=== PATIENT | female | born 1960 | race Caucasian/White ===

== ENCOUNTER → 2016-10-29 | Outpatient (CLI) | payer OTHER ==
[~2016-10-29] MED LIST: AMLO5 PO; BENZ1CAP8 PO; BUSP15TA PO; CITA40TA4 PO; CLOP75TA PO; DICY10 PO; FOLI1TAB4 PO; FURO1TAB62 PO; GAS-125C3 PO; LURA80 PO; OXYB5TAB10 PO; PENL8SOL TOPICAL; PRED20 PO; PROP20TA3 PO; SENN8.6C PO; SPIR25 PO; ZANT150T2 PO
[2016-10-29 08:33] LABS: MEAN CORPUSCULAR HGB CONC 36.1 % (32.0-36.0)
[2016-10-29 08:52] LABS: AUTOMATED NEUTROPHIL # 3.6 TH/MM3 (1.8-7.7); BASOPHIL # 0.1 TH/MM3 (0-0.2); BASOPHIL % 1.1 % (0.0-2.0); EOSINOPHIL # 0.1 TH/MM3 (0-0.4); EOSINOPHIL % 2.4 % (0.0-4.0); HEMATOCRIT 43.2 % (35.0-46.0); LYMPH % 26.2 % (9.0-44.0); LYMPHOCYTE # 1.5 TH/MM3 (1.0-4.8); MEAN CELL VOLUME 89.1 FL (80.0-100.0); MEAN CORPUSCULAR HEMOGLOBIN 32.1 PG (27.0-34.0); MONO % 6.9 % (0.0-8.0); NEUT % 63.4 % (16.0-70.0); PLATELET COUNT 195 TH/MM3 (150-450); RED BLOOD COUNT 4.84 MIL/MM3 (4.00-5.30); RED CELL DISTRIBUTION WIDTH 12.9 % (11.6-17.2); WHITE BLOOD COUNT 5.7 TH/MM3 (4.0-11.0)
[2016-10-29 08:56] LABS: HEMO FLAGS AUTO DIFF
[2016-10-29 09:30] LABS: ALKALINE PHOSPHATASE 122 U/L (45-117); ALT (GPT) 47 U/L (10-53); ANION GAP 8 MEQ/L (5-15); AST (GOT) 33 U/L (15-37); BICARBONATE 26.6 MEQ/L (21.0-32.0); BLOOD UREA NITROGEN 15 MG/DL (7-18); CHLORIDE 106 MEQ/L (98-107); GLOMERULAR FILTRATION RATE 72 ML/MIN (>89); GLUCOSE,FASTING 88 MG/DL (74-99); HDL CHOLESTEROL 45.2 MG/DL (40.0-60.0); LDL CHOLESTEROL 75 MG/DL (0-99); POTASSIUM 3.6 MEQ/L (3.5-5.1); SODIUM (NA) 141 MEQ/L (136-145); TOTAL BILIRUBIN ADULT 0.5 MG/DL (0.2-1.0)
[2016-10-29 10:10] LABS: PLATELET ESTIMATE SMEAR NORMAL (NORMAL); PLATELET MORPHOLOGY NORMAL (NORMAL); SCAN/DIFF AUTO DIFF CONFIRMED
== END ==
LOC: CLAB 08:26
PROVIDERS: ATTEND Family Medicine
DX: M94.0 Chondrocostal junction syndrome [Tietze] (principal); K58.9 Irritable bowel syndrome, unspecified; B35.1 Tinea unguium; B19.20 Unspecified viral hepatitis C without hepatic coma; T14.8 Other injury of unspecified body region; X58.XXXA Exposure to other specified factors, initial encounter
CPT/HCPCS: 36415; 80053; 80061; 84443; 85025

== ENCOUNTER 2017-12-12 17:01 | Emergency (ER) | payer OTHER ==
[~2017-12-12] VITALS: Ht 160 cm; Wt 68.0 kg
[~2017-12-12 17:01] MED LIST changes: -AMLO5 PO; +AMLO5TAB2 PO; -BENZ1CAP8 PO; +CITA20TA4 PO; -CITA40TA4 PO; -DICY10 PO; +DICY10CA12 PO; -FOLI1TAB4 PO; +FOLI1TAB6 PO; -GAS-125C3 PO; +METR-1 PO; -OXYB5TAB10 PO; +OXYB5TAB8 PO; -PRED20 PO; +PROP10TA6 PO; -PROP20TA3 PO; -SENN8.6C PO; +SENN8.6T81 PO; +SIME1CAP17 PO
[2017-12-12 17:03] VITALS: BP 109/63; PULSE 72; RESP 16; TEMP 98.4; O2SAT 98
[2017-12-12] MEDS ORDERED: DEXAMETHASONE SOD PHOS 4 MG/ML VIAL IM ONE (18:00)
[2017-12-12] MEDS ORDERED: ORPHENADRINE INJ 60 MG/2 ML AMP IM ONE (18:00)
[2017-12-12] MEDS ORDERED: TYLETAB34 PO (18:11)
[2017-12-12] MEDS ORDERED: PRED20 PO (18:11)
--- NOTE | 2017-12-12 18:11 | PD ---
HPI Chief Complaint: Musculoskeletal Complaint Time Seen by Provider: 17:45 Travel History International Travel<30 days: No Contact w/Intl Traveler<30days: No Traveled to known affect area: No History of Present Illness HPI 57-year-old female complains of left leg pain. Patient states that the pain started a month ago. Patient stated that the pain is burning pain sharp pain started left buttock with radiation to left leg to left foot. Patient states the pain has been constant for the past month. Patient denies any injury. Patient states that she was seen at [facility] in [facility] and had x-ray done which was negative. Patient states that the pain has been persistent since then. Patient states the pain is worse with standing and sitting down. Patient has history rheumatoid arthritis and PE. Patient's is on Plavix. On a scale of 1-10 the pain is a 10. PFSH Past Medical History Hx Anticoagulant Therapy: Yes (PLAVIX) Arthritis: Yes (RA, osteo, fibromyalgia) Asthma: No Autoimmune Disease: No Blood Disorders: No Anxiety: No Depression: Yes Heart Rhythm Problems: No Cancer: Yes (lyomyosarcoma) Cardiovascular Problems: Yes (HTN) High Cholesterol: No Chemotherapy: No Chest Pain: No Congestive Heart Failure: No COPD: No Cerebrovascular Accident: No Diabetes: No Diminished Hearing: No Endocrine: No Gastrointestinal Disorders: No GERD: No Glaucoma: No Genitourinary: No Headaches: No Hepatitis: Yes (C) Hiatal Hernia: No Hypertension: Yes Immune Disorder: No Implanted Vascular Access Dvce: No Kidney Stones: No Musculoskeletal: No Neurologic: No Psychiatric: No Reproductive: No Respiratory: No Integumentary: Yes (SKIN CA) Immunizations Current: Yes Migraines: No Myocardial Infarction: No Radiation Therapy: No Renal Failure: No Seizures: No Sickle Cell Disease: No Sleep Apnea: No Thyroid Disease: No Ulcer: No ?: Not Menopausal: Yes Para: 3 Tubal Ligation: Yes Past Surgical History Abdominal Surgery: No AICD: No Appendectomy: No Arteriovenous Shunt: No Cardiac Surgery: No Cholecystectomy: No Ear Surgery: No Endocrine Surgery: No Eye Surgery: No Genitourinary Surgery: No Gynecologic Surgery: No Insulin Pump: No Joint Replacement: No Neurologic Surgery: No Oral Surgery: No Pacemaker: No Thoracic Surgery: No Other Surgery: Yes (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) Social History Alcohol Use: No Tobacco Use: No Substance Use: No (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) Allergies-Medications (Allergen,Severity, Reaction): Coded Allergies: No Known Allergies (Verified , 05/14/17) Reported Meds & Prescriptions Reported Meds & Active Scripts Active Flagyl (Metronidazole) 500 Mg Tab 500 Mg PO BID Penlac (Nail Lacquer) Topical (Ciclopirox (Nail Lacquer) Topical) 8% Soln 1 Applic TOPICAL HS Amlodipine (Amlodipine Besylate) 5 Mg Tab 5 Mg PO DAILY Dicyclomine (Dicyclomine HCl) 10 Mg Cap 10 Mg PO QID Lasix (Furosemide) 20 Mg Tab 20 Mg PO DAILY Clopidogrel (Clopidogrel Bisulfate) 75 Mg Tab 75 Mg PO DAILY Propranolol (Propranolol HCl) 10 Mg Tab 30 Mg PO DAILY Simethicone 125 Mg Cap 125 Mg PO BID PRN Sennosides 8.6 Mg Tab 8.6 Mg PO HS Folic Acid 1 Mg Tablet 1 Mg PO DAILY Zantac (Ranitidine HCl) 150 Mg Tab 150 Mg PO BID Aldactone (Spironolactone) 25 Mg Tab 25 Mg PO BIDPC Ditropan (Oxybutynin Chloride) 5 Mg Tab 5 Mg PO Q8HR Reported Citalopram (Citalopram Hydrobromide) 20 Mg Tab 20 Mg PO DAILY Latuda (Lurasidone) 80 Mg Tab 80 Mg PO HS Buspirone (Buspirone HCl) 15 Mg Tab 30 Mg PO TID Review of Systems General / Constitutional: No: Fever Eyes: No: Visual changes HENT: No: Headaches Cardiovascular: No: Chest Pain or Discomfort Respiratory: No: Shortness of Breath Gastrointestinal: No: Abdominal Pain Genitourinary: No: Dysuria Musculoskeletal: Positive: Pain Skin: No Rash Neurologic: No: Weakness Psychiatric: No: Depression Endocrine: No: Polydipsia Hematologic/Lymphatic: No: Easy Bruising Physical Exam Narrative GENERAL: Well-nourished, well-developed patient. SKIN: Focused skin assessment warm/dry. HEAD: Normocephalic. EYES: No scleral icterus. No injection or drainage. NECK: Supple, trachea midline. No JVD or lymphadenopathy. CARDIOVASCULAR: Regular rate and rhythm without murmurs, gallops, or rubs. RESPIRATORY: Breath sounds equal bilaterally. No accessory muscle use. GASTROINTESTINAL: Abdomen soft, non-tender, nondistended. MUSCULOSKELETAL: No cyanosis, or edema. BACK: Nontender without obvious deformity. No CVA tenderness. Patient has moderate tenderness and palpation left sciatic notch area with positive straight leg raising the left leg. Sensorimotor function distally intact. Data Data Last Documented VS Vital Signs Date Time Temp Pulse Resp B/P (MAP) Pulse Ox O2 Delivery O2 Flow Rate FiO2 12/12/17 17:03 98.4 72 16 109/63 (78) 98 Orders Orders Dexamethasone Inj (Decadron Inj) (12/12/17 18:00) Orphenadrine Inj (Norflex Inj) (12/12/17 18:00) [facility] Medical Decision Making Medical Screen Exam Complete: Yes Emergency Medical Condition: Yes Differential Diagnosis Differential diagnosis including sciatica, radiculopathy, bursitis, tendinitis. Narrative Course 57-year-old female with sharp pain started on the left buttock with radiation to left leg. Nontraumatic. X-ray of the left hip was negative recently. Decadron 8 mg IM. Norflex 60 mg IM. Diagnosis Primary Impression: Left sided sciatica Patient Instructions: General Instructions Additional Instructions: Take medications as directed. Follow-up with orthopedist. Med/Other Pt SpecificInfo: Prescription(s) given Scripts Prednisone (Prednisone) 20 Mg Tab 20 MG PO BID, #14 TAB 0 Refills Prov: Baljit Álvarez MD 12/12/17 Acetaminophen-Codeine (Tylenol-Codeine #3) 300-30 mg Tab 1 TAB PO Q6H Y for PAIN, #20 TAB 0 Refills Prov: Baljit Álvarez MD 12/12/17 Disposition: 01 DISCHARGE HOME Condition: Stable Baljit Álvarez MD Dec 12, 2017 18:11
== END 2017-12-12 18:41 | disposition home or self-care (01) ==
LOC: NEPD 17:01
DX: M54.32 Sciatica, left side (principal); I10 Essential (primary) hypertension; M06.9 Rheumatoid arthritis, unspecified; Z79.02 Long term (current) use of antithrombotics/antiplatelets
CPT/HCPCS: 96372; 99283; J1100; J2360